=== PATIENT | male | born 1975 | race Caucasian/White ===

== ENCOUNTER 2019-05-13 14:28 | Emergency (ER) | payer OTHER ==
[~2019-05-13] VITALS: Ht 167.6 cm; Wt 68.0 kg
[2019-05-13 14:35] VITALS: Ht 167.6 cm; Wt 68.0 kg
[2019-05-13 18:53] VITALS: BP 139/88
== END 2019-05-13 18:53 | disposition home or self-care (01) ==
LOC: ED 14:28
DX: S62.631B Displaced fracture of distal phalanx of left index finger, initial encounter for open fracture (principal); W31.2XXA Contact with powered woodworking and forming machines, initial encounter; Y93.89 Activity, other specified; Y92.89 Other specified places as the place of occurrence of the external cause; Y99.0 Civilian activity done for income or pay
CPT/HCPCS: 90715; J0696; J2001; Q0092